=== PATIENT | female | born 2000 | race Caucasian/White ===

== ENCOUNTER 2019-09-07 01:38 | Emergency (ER) | payer MEDICAID ==
[~2019-09-07] VITALS: Ht 152.4 cm; Wt 49.9 kg
[2019-09-07 01:40] VITALS: BP_SYST 157
--- NOTE | 2019-09-07 01:40 | NUR ---
Patient triaged and placed in waiting room. VSS and patient appears in no acute distress at this time. Accompanied by self, awaiting available bed, and MD notified of need for MSE.
[2019-09-07 04:00] VITALS: BP_SYST 146
--- NOTE | 2019-09-07 05:00 | NUR ---
call pt name in the wr.No answer.
--- NOTE | 2019-09-07 05:05 | NUR ---
call pt name in the wr.No answer.
--- NOTE | 2019-09-07 05:10 | NUR ---
call pt name in the wr.No answer.
== END 2019-09-07 05:10 | disposition left against medical advice (07) ==
LOC: SED 01:38
DX: N89.8 Other specified noninflammatory disorders of vagina (principal); Z53.21 Procedure and treatment not carried out due to patient leaving prior to being seen by health care provider